=== PATIENT | female | born 1980 | race Caucasian/White ===

== ENCOUNTER → 2024-08-03 07:42 | Outpatient (REF) | payer BC, SELFPAY | LOC: HWWDC 07:42 | PROVIDERS: ATTENDING PHYSICIAN Obstetrics & Gynecology; FAMILY PHYSICIAN Internal Medicine | DX: Z12.31 Encounter for screening mammogram for malignant neoplasm of breast (principal) | CPT/HCPCS: 77063; 77067 ==

== ENCOUNTER → 2024-08-15 10:39 | Outpatient (REF) | payer BC, SELFPAY | LOC: WDC 10:39 | PROVIDERS: ATTENDING PHYSICIAN Obstetrics & Gynecology; FAMILY PHYSICIAN Internal Medicine | DX: R92.8 Other abnormal and inconclusive findings on diagnostic imaging of breast (principal) | CPT/HCPCS: 76642 ==

== ENCOUNTER → 2024-09-05 16:22 | Outpatient (REF) | payer BC, SELFPAY | LOC: MRI 3T 16:22 | PROVIDERS: ATTENDING PHYSICIAN Internal Medicine Hematology & Oncology; PRIMARYCARE PHYSICIAN Internal Medicine | DX: R92.8 Other abnormal and inconclusive findings on diagnostic imaging of breast (principal) | CPT/HCPCS: 77049; A9585 ==

== ENCOUNTER 2024-12-26 06:17 | Day surgery (SDC) | payer BC, SELFPAY | END 2024-12-26 13:54 | disposition home or self-care (01) | LOC: GI 06:17 | PROVIDERS: ATTENDING PHYSICIAN Internal Medicine Gastroenterology | DX: Z12.11 Encounter for screening for malignant neoplasm of colon (principal); K64.8 Other hemorrhoids; R12 Heartburn; K31.89 Other diseases of stomach and duodenum | CPT/HCPCS: 43239; G0121; 88305; 88342 ==